=== PATIENT | male | born 1930 | race Caucasian/White ===

== ENCOUNTER 2016-12-27 16:17 | Observation (INO) | payer MEDICARE ==
[2016-12-27] VITALS (8 sets, daily range): BP systolic 122–206; BP diastolic 56–91; PULSE 57–82; RESP 18–20; TEMP 97.7–98; O2SAT 97–99
[~2016-12-27] VITALS: Ht 160 cm; Wt 82.0 kg
[~2016-12-27 16:17] MED LIST: ALBU6.7H INH; AMLO5TAB96; ASPI325T24; ATOR10; CLOP75; DYAZ37.52; METO25; PACE200T4; PERI1TAB; PRED20 PO; SPACER
[2016-12-27] MEDS ORDERED: METO25TA3 PO (16:41)
[2016-12-27] MEDS ORDERED: DIGO0.12 PO (16:41)
[2016-12-27] MEDS ORDERED: B12-1CHW CHEW (16:41)
[2016-12-27] MEDS ORDERED: WARF-23 PO (16:41)
--- NOTE | 2016-12-27 16:53 | PD ---
HPI Chief Complaint: Cardiac Complaint Time Seen by Provider: 16:38 Travel History International Travel<30 days: No Contact w/Intl Traveler<30days: No Traveled to known affect area: No History of Present Illness HPI 86-year-old male with history of atrial fibrillation, coronary disease, hypertension who presents for evaluation of chest pain, dizziness, fatigue. Per the patient he has been feeling somewhat generally weak for about 5 days. His has been checking his blood pressure and a daily basis and it has been running in the 140s to 170s systolic at home. This is atypical for him as he usually has a "low" blood pressure at home. Over the past 2-3 days she has been feeling intermittent dizziness, lightheadedness, which is worse when he is walking. He also notes that 2 days ago he developed some left sided chest pain which she described as a aching sensation. Symptoms lasted for about 45 minutes. He thought that it may be indigestion causing his pain and he took some Mylanta and the symptoms resolved. He has had no further chest pain since then but he has continued to have high blood pressure and dizziness which prompted evaluation. He denies headache, blurred vision, nausea or vomiting, shortness of breath, cough, fevers or chills, rash, dysuria, diarrhea. He sees tobacco sizer Dr. James in [place]. He has no primary care physician. He has no other complaints. PFS Past Medical History Hx Anticoagulant Therapy: Yes (WARFARIN) Atrial Fibrillation: Yes Cancer: Yes (DUODENAL-IN REMISSION) Cardiovascular Problems: Yes (CABG, A. FIB) Hypertension: Yes Past Surgical History Abdominal Surgery: Yes (duodenal surgery ) Appendectomy: Yes (REMOVED DUE TO POSS CA) Coronary Artery Bypass Graft: Yes (4X 2003) Social History Alcohol Use: Yes (occassionally ) Tobacco Use: Yes (cigar 2-3 A DAY) Substance Use: No Allergies-Medications (Allergen,Severity, Reaction): Coded Allergies: No Known Allergies (Verified , 12/27/16) Reported Meds & Prescriptions Reported Meds & Active Scripts Active Reported S94-Cocydc (Methylcobalamin) 1 Mg Chew 1 Mg CHEW DAILY Digoxin 0.125 Mg Tab 0.125 Mg PO DAILY Warfarin 5 Mg Tab 5 Mg PO DAILY Metoprolol Tartrate 25 Mg Tab 25 Mg PO BID Review of Systems Except as stated in HPI: all other systems reviewed are Neg Physical Exam Narrative GENERAL: Well-developed well-nourished male in no acute distress SKIN: Warm and dry. HEAD: Atraumatic. Normocephalic. EYES: Pupils equal and round. No scleral icterus. No injection or drainage. ENT: No nasal bleeding or discharge. Mucous membranes pink and moist. NECK: Trachea midline. No JVD. CARDIOVASCULAR: Regular rate and rhythm. No murmur appreciated. RESPIRATORY: No accessory muscle use. Clear to auscultation. Breath sounds equal bilaterally. GASTROINTESTINAL: Abdomen soft, non-tender, nondistended. Hepatic and splenic margins not palpable. MUSCULOSKELETAL: No obvious deformities. No edema. Ambulatory in the ED. NEUROLOGICAL: Awake and alert. No obvious cranial nerve deficits. Motor grossly within normal limits. Normal speech. PSYCHIATRIC: Appropriate mood and affect; insight and judgment normal. Data Data Last Documented VS Vital Signs Date Time Temp Pulse Resp B/P Pulse Ox O2 Delivery O2 Flow Rate FiO2 12/27/16 17:41 99 Room Air 12/27/16 16:42 18 12/27/16 16:20 97.7 74 206/91 Orders Electrocardiogram (12/27/16 16:49) Basic Metabolic Panel (Bmp) (12/27/16 16:49) Ckmb (Isoenzyme) Profile (12/27/16 16:49) Complete Blood Count With Diff (12/27/16 16:49) Magnesium (Mg) (12/27/16 16:49) Prothrombin Time / Inr (Pt) (12/27/16 16:49) Troponin I (12/27/16 16:49) Chest, Single Ap (12/27/16 16:49) Ecg Monitoring (12/27/16 16:49) Bilateral Bp Monitoring (12/27/16 16:49) Iv Access Insert/Monitor (12/27/16 16:49) Oximetry (12/27/16 16:49) Oxygen Administration (12/27/16 16:49) Sodium Chloride 0.9% Flush (Ns Flush) (12/27/16 17:00) Urinalysis - C+S If Indicated (12/27/16 16:49) Ct Brain W/O Iv Contrast(Rout) (12/27/16 ) Digoxin (12/27/16 16:49) Amlodipine (Norvasc) (12/27/16 18:30) Labs Laboratory Tests Test 12/27/16 12/27/16 17:05 17:21 White Blood Count 3.8 TH/MM3 Red Blood Count 3.46 MIL/MM3 Hemoglobin 11.1 GM/DL Hematocrit 32.3 % Mean Corpuscular Volume 93.4 FL Mean Corpuscular Hemoglobin 32.0 PG Mean Corpuscular Hemoglobin 34.3 % Concent Red Cell Distribution Width 14.3 % Platelet Count 141 TH/MM3 Mean Platelet Volume 8.4 FL Neutrophils (%) (Auto) 68.0 % Lymphocytes (%) (Auto) 21.5 % Monocytes (%) (Auto) 6.1 % Eosinophils (%) (Auto) 3.9 % Basophils (%) (Auto) 0.5 % Neutrophils # (Auto) 2.6 TH/MM3 Lymphocytes # (Auto) 0.8 TH/MM3 Monocytes # (Auto) 0.2 TH/MM3 Eosinophils # (Auto) 0.1 TH/MM3 Basophils # (Auto) 0.0 TH/MM3 CBC Comment DIFF FINAL Differential Comment Prothrombin Time 17.1 SEC Prothromb Time International 1.5 RATIO Ratio Sodium Level 136 MEQ/L Potassium Level 4.1 MEQ/L Chloride Level 104 MEQ/L Carbon Dioxide Level 24.8 MEQ/L Anion Gap 7 MEQ/L Blood Urea Nitrogen 19 MG/DL Creatinine 1.10 MG/DL Estimat Glomerular Filtration 63 ML/MIN Rate Random Glucose 153 MG/DL Calcium Level 8.1 MG/DL Magnesium Level 2.2 MG/DL Total Creatine Kinase 74 U/L Troponin I LESS THAN 0.02 NG/ML Digoxin Level 0.4 NG/ML Urine Color YELLOW Urine Turbidity CLEAR Urine pH 6.0 Urine Specific [place] 1.014 Urine Protein NEG mg/dL Urine Glucose (UA) NEG mg/dL Urine Ketones NEG mg/dL Urine Occult Blood NEG Urine Nitrite NEG Urine Bilirubin NEG Urine Urobilinogen LESS THAN 2.0 MG/DL Urine Leukocyte Esterase NEG Urine RBC 1 /hpf Urine WBC LESS THAN 1 /hpf Microscopic Urinalysis Comment CULT NOT INDICATED MDM Medical Decision Making Medical Screen Exam Complete: Yes Emergency Medical Condition: Yes Medical Record Reviewed: Yes Interpretation(s) EKG atrial fibrillation, isolated T-wave inversion in lead V1 CT brain CONCLUSION: 1. No acute findings. Chronic white matter ischemic changes. Chest x-ray CBC cbc3.8, hemoglobin 11.1, platelet 141 BMP BMP BUN 19, calcium 8.1, glucose 153 Troponin negative CK negative digoxin 0.4 Urinalysis negative Differential Diagnosis Angina, acute coronary syndrome, arrhythmia, electrolyte abnormality, intracranial or subdural hemorrhage, digoxin toxicity, medic anemia, dehydration Narrative Course The patient was placed on monitoring specialist and oximetry. Basic lab work, 12- lead EKG were ordered. CT brain, chest x-ray ordered. The patient was given a dose of norvasc for his hypertension. The patient's laboratory and imaging studies been reviewed and found the reassuring. His digoxin level is low at 0.4. His INR is subtherapeutic at 1.5. Given his symptoms of intermittent dizziness over the past few days is significant past medical history and age as a risk factor, plan is to admit the patient for observation of which the patient is agreeable. Discussed with resident Dr. Pascual who is agreeable with admission to Dr. Laura. Diagnosis Primary Impression: Dizziness Additional Impression: Chest pain Qualified Code: R07.9 - Chest pain, unspecified type Admitting Information Admitting Physician Requests: Observation Dontrell Peña Dec 27, 2016 16:53
[2016-12-27] MEDS ORDERED: SODIUM CHLORIDE 0.9% FLUSH 5 ML FLUSH IVF PRN (17:00)
[2016-12-27 17:33] LABS: AUTOMATED NEUTROPHIL # 2.6 TH/MM3 (1.8-7.7); BASOPHIL % 0.5 % (0.0-2.0); EOSINOPHIL # 0.1 TH/MM3 (0-0.4); EOSINOPHIL % 3.9 % (0.0-4.0); HEMATOCRIT 32.3 % (39.0-51.0); HEMO FLAGS DIFF FINAL; LYMPH % 21.5 % (9.0-44.0); LYMPHOCYTE # 0.8 TH/MM3 (1.0-4.8); MEAN CELL VOLUME 93.4 FL (80.0-100.0); MEAN CORPUSCULAR HGB CONC 34.3 % (32.0-36.0); MONO % 6.1 % (0.0-8.0); PLATELET COUNT 141 TH/MM3 (150-450); RED BLOOD COUNT 3.46 MIL/MM3 (4.50-5.90); RED CELL DISTRIBUTION WIDTH 14.3 % (11.6-17.2); WHITE BLOOD COUNT 3.8 TH/MM3 (4.0-11.0)
[2016-12-27 17:40] LABS: INTERNATIONAL NORMALIZED RATIO 1.5 RATIO; PROTHROMBIN TIME - PATIENT 17.1 SEC (9.8-11.6)
--- NOTE | 2016-12-27 17:42 | RADRPT ---
EXAM DATE/TIME: 12/27/2016 17:11 [facility] COMPARISON: No previous studies available for comparison. INDICATIONS : Dizziness and fatigue for five days. RADIATION DOSE: 56.35 CTDIvol (mGy) MEDICAL HISTORY : Hypertension. Carcinoma, not otherwise specified. SURGICAL HISTORY : CABG ENCOUNTER: Initial ACUITY: 1 day PAIN SCALE: 0/10 LOCATION: cranial TECHNIQUE: Multiple contiguous axial images were obtained of the head. Using automated exposure control and adj ustment of the mA and/or kV according to patient size, radiation dose was kept as low as reasonably a chievable to obtain optimal diagnostic quality images. FINDINGS: CEREBRUM: The ventricles are normal for age. No evidence of midline shift, mass lesion, hemorrhage or acute in farction. No extra-axial fluid collections are seen. POSTERIOR FOSSA: The cerebellum and brainstem are intact. The 4th ventricle is midline. The cerebellopontine angle i s unremarkable. EXTRACRANIAL: The visualized portion of the orbits is intact. SKULL: The calvaria is intact. No evidence of skull fracture. CONCLUSION: 1. No acute findings. Chronic white matter ischemic changes. Marcell Ortega MD on December 27, 2016 at 17:40 Board Certified Radiologist. This report was verified electronically.
[2016-12-27 17:48] LABS: BLOOD, URINE NEG (NEG); COMMENT (UR) CULT NOT INDICATED; CULTURE IF INDICATED CULT NOT INDICATED; GLUCOSE,URINE NEG (NEG); KETONE, URINE NEG (NEG); NITRITE,URINE NEG (NEG); URINE COLOR YELLOW (YELLW/STRAW)
[2016-12-27 17:56] LABS: ANION GAP 7 MEQ/L (5-15); BICARBONATE 24.8 MEQ/L (21.0-32.0); BLOOD UREA NITROGEN 19 MG/DL (7-18); CHLORIDE 104 MEQ/L (98-107); GLOMERULAR FILTRATION RATE 63 ML/MIN (>89); MAGNESIUM 2.2 MG/DL (1.5-2.5); POTASSIUM 4.1 MEQ/L (3.5-5.1); SODIUM (NA) 136 MEQ/L (136-145)
[2016-12-27 18:10] LABS: DIGOXIN 0.4 NG/ML (0.8-2.0)
[2016-12-27 18:14] LABS: CREATINE KINASE 74 U/L (39-308)
--- NOTE | 2016-12-27 19:03 | HHI.HP ---
HPI Service Family Medicine Primary Care Physician No Primary Care Physician Admission Diagnosis Dizziness, chest pain Diagnoses: Chief Complaint: high blood pressure International Travel<30 Days: No Contact w/Intl Traveler<30days: No Known Affected Area: No History of Present Illness 86 y/o male with history of atrial fibrillation presents for elevated pressure. States he has had elevated blood pressure, checked at home, since Thursday. in room with patient, who checks his blood pressure. Endorses some dizzy spells and indigestion. Also had several spells of chest pressure that resolve spontaneously. states he usually keeps busy, but felt more fatigued than normal. No chest pain currently, no shortness of breath. No palpitations. Has history of paroxysmal atrial fibrillation. He is on Coumadin. 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 He has no primary care doctor. He takes Digoxin and metoprolol. He was diagnosed in 2004 after bypass surgery, after going in for a stent, never had an ME. States his blood pressure is usually on the lower side. His last echo was in the last year or so. No history of strokes, hyperthyroidism. Occasional alcohol use. Review of Systems Constitutional: COMPLAINS OF: Fatigue, Dizziness, DENIES: Diaphoretic episodes , Fever, Chills Eyes: DENIES: Blurred vision, Eye pain Ears, nose, mouth, throat: DENIES: Nasal discharge, Sinus Pain Respiratory: DENIES: Cough, Shortness of breath Cardiovascular: COMPLAINS OF: Palpitations, DENIES: Chest pain, Lower Extremity Edema Gastrointestinal: DENIES: Abdominal pain, Black stools, Bloody stools, Constipation, Diarrhea, Nausea, Vomiting Genitourinary: DENIES: Dysuria Musculoskeletal: DENIES: Joint pain, Muscle aches Integumentary: DENIES: Abnormal pigmentation, Nail changes Hematologic/lymphatic: DENIES: Bruising, Lymphadenopathy Immunologic/allergic: DENIES: Eczema, Urticaria Neurologic: DENIES: Headache, Localized weakness Other as per HPI Past Family Social History Past Medical History Afib Duodenal cancer, in remission Past Surgical History Heart bypass Some arm, back surgeries Reported Medications Reported Meds & Active Scripts Active Reported [id number] (Methylcobalamin) 1 Mg Chew 1 Mg CHEW DAILY Digoxin 0.125 Mg Tab 0.125 Mg PO DAILY Warfarin 5 Mg Tab 5 Mg PO DAILY Metoprolol Tartrate 25 Mg Tab 25 Mg PO BID Allergies: Coded Allergies: No Known Allergies (Verified , 12/27/16) Active Ordered Medications Active Medications Amlodipine Besylate (Norvasc) 10 mg ONCE ONCE PO; Start 12/27/16 at 18:30; Stop 12/27/16 at 18:31; Status DC IV Flush (NS Flush) 2 ml UNSCH PRN IVF; Start 12/27/16 at 17:00 Family History Father-ME Mother-cancer Social History Occasional alcohol use History of cigar use Denies illicit drug use Physical Exam Vital Signs Vital Signs Date Time Temp Pulse Resp B/P Pulse Ox O2 Delivery O2 Flow Rate FiO2 12/27/16 17:41 99 Room Air 12/27/16 17:41 99 Room Air 12/27/16 16:42 18 12/27/16 16:20 97.7 74 20 206/91 97 Room Air Physical Exam GENERAL: Not diaphoretic. Negative [place] sign. No acute distress. EYES: PERRLA. EOMI. Lids and conjunctivae reveal no gross abnormality. No scleral icterus. ENT: Hearing adequate. Head NCAT. MMM. OP/OC clear. No cervical or supraclavicular LAD. NECK: No JVD. No carotid bruits. Neck supple, no masses. Trachea midline. No thyromegaly. RESPIRATORY: No evidence of pulmonary edema. Lungs essentially CTAB, no wheezing , crackles, or increased WOB. CARDIOVASCULAR: Irregularly irregular. no murmurs or rubs. Radial and DP pulses 2+ and symmetric bilaterally. Brisk capillary refill. ABDOMEN: S/ NT/ND. Bowel sounds x 4. No masses or pulsations present. No hepatosplenomegaly. EXTREMITIES: No remarkable dependent edema or varicosities. No clubbing, cyanosis, or erythema. MUSCULOSKELETAL: MAEW without significant joint pain or deformity. Strength 5/5 in upper and lower extremities. No calf tenderness. SKIN: Essentially clear with no significant rash or lesions. Adequate skin turgor. NEUROLOGICAL: NFND. Cranial nerves 2-12 grossly intact. Reflexes +2, symmetric bilaterally in upper and lower extremities. PSYCHIATRIC: Mental status normal for age. Laboratory Laboratory Tests Test 12/27/16 12/27/16 17:05 17:21 White Blood Count 3.8 Red Blood Count 3.46 Hemoglobin 11.1 Hematocrit 32.3 Mean Corpuscular Volume 93.4 Mean Corpuscular Hemoglobin 32.0 Mean Corpuscular Hemoglobin 34.3 Concent Red Cell Distribution Width 14.3 Platelet Count 141 Mean Platelet Volume 8.4 Neutrophils (%) (Auto) 68.0 Lymphocytes (%) (Auto) 21.5 Monocytes (%) (Auto) 6.1 Eosinophils (%) (Auto) 3.9 Basophils (%) (Auto) 0.5 Neutrophils # (Auto) 2.6 Lymphocytes # (Auto) 0.8 Monocytes # (Auto) 0.2 Eosinophils # (Auto) 0.1 Basophils # (Auto) 0.0 CBC Comment DIFF FINAL Differential Comment Prothrombin Time 17.1 Prothromb Time International 1.5 Ratio Sodium Level 136 Potassium Level 4.1 Chloride Level 104 Carbon Dioxide Level 24.8 Anion Gap 7 Blood Urea Nitrogen 19 Creatinine 1.10 Estimat Glomerular Filtration 63 Rate Random Glucose 153 Calcium Level 8.1 Magnesium Level 2.2 Total Creatine Kinase 74 Troponin I LESS THAN 0.02 Digoxin Level 0.4 Urine Color YELLOW Urine Turbidity CLEAR Urine pH 6.0 Urine Specific [place] 1.014 Urine Protein NEG Urine Glucose (UA) NEG Urine Ketones NEG Urine Occult Blood NEG Urine Nitrite NEG Urine Bilirubin NEG Urine Urobilinogen LESS THAN 2.0 Urine Leukocyte Esterase NEG Urine RBC 1 Urine WBC LESS THAN 1 Microscopic Urinalysis Comment CULT NOT INDICATED Result Diagram: 12/27/16 1705 12/27/16 1705 Imaging Last Impressions Head CT 12/27/16 0000 Signed Impressions: Service Date/Time: Tuesday, December 27, 2016 17:11 - CONCLUSION: 1. No acute findings. Chronic white matter ischemic changes. Marcell Ortega MD Assessment and Plan Assessment and Plan 86-year-old male with history of atrial fibrillation presents with elevated blood pressure and chest pain. Will admit observation for blood pressure control and ACS ruleout Code Status Full Discussed Condition With Dr. Ozuna Problem List: (1) Chest pain Status: Acute Plan: DDx includes ACS, GERD, PE, pneumonia, panic attack, myocarditis, costochondritis. Family history of heart disease. S/p CABG EKG showed atrial fibrillation, isolated T-wave inversion in V1 CXR showed cardiomegaly, postoperative CABG. No acute disease -Initial Trop less than 0.02. Trend Ervin and EKGs x 2. -Continue Metoprolol 25 PO BID marco -Continue digoxin -Zofran PRN nausea -Tele. -AM BMP (2) Hypertensive urgency Status: Acute Plan: BP 206/91 on admission. Trending down after given amlodipine in ED -Continue home metoprolol 25mg BID -Clonidine 0.1mg q6H for SBP>170, DBP>100 -Monitor vitals (3) Atrial fibrillation Status: Acute Plan: History of paroxysmal A. fib EKG showed A. fib and in ED INR 1.5, Digoxin level 0.4 AHT2YH0-Symd score: 4 -Continue digoxin, may need to increase due to low serum level -Continue metoprolol 25mg BID -Continue warfarin 5mg daily -Start therapeutic lovenox, due to patient not in therapeutic INR range -Daily PT/INR (4) FEN Status: Acute Plan: Fluids: tolerating PO Electrolytes: wnl, continue to monitor Nutrition: heart healthy diet DVT ppx: therapeutic lovenox & warfarin Problem Qualifiers (1) Chest pain: Qualified Code: R07.9 - Chest pain, unspecified type (2) Atrial fibrillation: Qualified Code: I48.0 - Paroxysmal atrial fibrillation Yoel Olivo MD R1 Dec 27, 2016 19:03
[2016-12-27] MEDS ORDERED: NALOXONE HCL 0.4 MG/ML AMP IV PRN (19:15)
[2016-12-27] MEDS ORDERED: SODIUM CHLORIDE 0.9% FLUSH 5 ML FLUSH FLUSH PRN (19:15)
[2016-12-27] MEDS ORDERED: ONDANSETRON HCL 4 MG/2 ML VIAL IVP PRN (19:15)
[2016-12-27] MEDS ORDERED: cloNIDine HCL 0.1 MG TAB PO PRN (19:15)
[2016-12-27] MEDS ORDERED: ACETAMINOPHEN 325 MG TAB PO PRN (19:15)
--- NOTE | 2016-12-27 19:29 | RADRPT ---
EXAM DATE/TIME: 12/27/2016 17:47 [facility] COMPARISON: No previous studies available for comparison. INDICATIONS : Chest Pain MEDICAL HISTORY : Hypertension. Carcinoma, colon. SURGICAL HISTORY : CABG. ENCOUNTER: Initial ACUITY: 1 day PAIN SCORE: 0/10 LOCATION: Bilateral chest FINDINGS: Cardiomegaly is present. Postoperative CABG. No focal consolidation or significant effusion. No pneum othorax. CONCLUSION: 1. Cardiomegaly, postoperative CABG. No focal consolidation or effusion. Marcell Ortega MD on December 27, 2016 at 19:26 Board Certified Radiologist. This report was verified electronically.
[2016-12-27] MEDS ORDERED: CYANOCOBALAMIN 1,000 MCG TAB PO SCH (19:30)
[2016-12-27] MEDS ORDERED: DO NOT ADM ANY ANTICOAGULANT DRUGS XX PRN (19:45)
[2016-12-27] MEDS ORDERED: WARFARIN SOD 6 MG TAB PO SCH (20:00)
[2016-12-27] MEDS ORDERED: hydrOXYzine HCL 25 MG TAB PO PRN (20:00)
[2016-12-27] MEDS: DIGOXIN 0.125 MG TAB PO SCH (20:52)
[2016-12-27] MEDS ORDERED: METOPROLOL TARTRATE 25 MG TAB PO SCH (21:00)
[2016-12-27] MEDS: ENOXAPARIN SODIUM 100 MG/ML SYRINGE SQ SCH (21:30)
[2016-12-27] MEDS: SODIUM CHLORIDE 0.9% FLUSH 5 ML FLUSH FLUSH SCH (22:57)
[2016-12-28] VITALS: PULSE 59
[2016-12-28 04:59] VITALS: BP 101/52; PULSE 67; RESP 19; TEMP 98.2; O2SAT 97
[2016-12-28 06:05] LABS: INTERNATIONAL NORMALIZED RATIO 1.7 RATIO; PROTHROMBIN TIME - PATIENT 19.4 SEC (9.8-11.6)
[2016-12-28 06:10] LABS: AUTOMATED NEUTROPHIL # 2.1 TH/MM3 (1.8-7.7); BASOPHIL % 0.6 % (0.0-2.0); EOSINOPHIL # 0.2 TH/MM3 (0-0.4); EOSINOPHIL % 5.9 % (0.0-4.0); HEMATOCRIT 32.4 % (39.0-51.0); HEMO FLAGS DIFF FINAL; LYMPH % 29.6 % (9.0-44.0); LYMPHOCYTE # 1.1 TH/MM3 (1.0-4.8); MEAN CELL VOLUME 95.1 FL (80.0-100.0); MEAN CORPUSCULAR HEMOGLOBIN 32.4 PG (27.0-34.0); MEAN CORPUSCULAR HGB CONC 34.1 % (32.0-36.0); MONO % 7.5 % (0.0-8.0); NEUT % 56.4 % (16.0-70.0); PLATELET COUNT 123 TH/MM3 (150-450); RED CELL DISTRIBUTION WIDTH 14.6 % (11.6-17.2); WHITE BLOOD COUNT 3.7 TH/MM3 (4.0-11.0)
[2016-12-28 06:33] LABS: ANION GAP 9 MEQ/L (5-15); BICARBONATE 21.9 MEQ/L (21.0-32.0); BLOOD UREA NITROGEN 21 MG/DL (7-18); CHLORIDE 104 MEQ/L (98-107); GLOMERULAR FILTRATION RATE 67 ML/MIN (>89); POTASSIUM 4.1 MEQ/L (3.5-5.1); SODIUM (NA) 135 MEQ/L (136-145)
[2016-12-28 06:43] LABS: CREATINE KINASE 71 U/L (39-308)
[2016-12-28 08:00] VITALS: PULSE 77
--- NOTE | 2016-12-28 08:56 | HHI.DCPOC ---
Discharge Care Plan Diagnosis: (1) Atrial fibrillation (2) Hypertensive urgency Goals to Promote Your Health * To prevent worsening of your condition and complications * To maintain your health at the optimal level Directions to Meet Your Goals Take your medications as prescribed Follow your dietary instruction Follow activity as directed Keep your appointments as scheduled Take your immunizations and boosters as scheduled If your symptoms worsen call your PCP, if no PCP go to Urgent Care Center or Emergency Room Smoking is Dangerous to Your Health. Avoid second hand smoke Call the 24-hour hour crisis hotline for domestic abuse at Christopher Macias MD R3 Dec 28, 2016 08:56
[2016-12-28] MEDS: SODIUM CHLORIDE 0.9% FLUSH 5 ML FLUSH FLUSH SCH (09:00)
[2016-12-28] MEDS: ENOXAPARIN SODIUM 100 MG/ML SYRINGE SQ SCH (09:00)
[2016-12-28] MEDS ORDERED: CYANOCOBALAMIN 1,000 MCG TAB PO SCH (09:00)
[2016-12-28 09:31] VITALS: O2SAT 95
[2016-12-28] MEDS: DIGOXIN 0.125 MG TAB PO SCH (09:50)
--- NOTE | 2016-12-28 10:42 | HHI.FPPN ---
Subjective Remarks Patient seen, examined and discussed with the medicine team. This is an 86-year-old male who resented to the emergency department on December 27 from home as his blood pressure had been elevated at home for a few days and his was concerned. He was experiencing some dizziness, some chest pressure and fatigue over the last several days and reported that he just didn't seem like himself. He has known atrial fibrillation and has been on Coumadin 5 mg daily, digoxin 0.125 mg daily and metoprolol 25 mg twice a day. He states that he did not miss any of his medications. Denies chest pain. His blood pressure initially when he presented was 206/91. History of CABG in 2004, had an echocardiogram within the last 1 year. He has a attending psychiatrist but has been unable to contact that physician despite having INR drawn, he has not been given the results. Remote history of duodenal carcinoma in remission. See history and physical examination for this admission; history and review of systems was repeated this morning and there is no change. If not indicated, no symptoms noted. This morning, he feels better and his dizziness and chest pressure have resolved. He feels ready to go home. Objective Vitals Vital Signs Date Time Temp Pulse Resp B/P Pulse Ox O2 Delivery O2 Flow Rate FiO2 12/28/16 09:31 95 21 12/28/16 04:59 98.2 67 19 101/52 97 12/28/16 00:00 59 12/27/16 23:41 98.0 57 19 122/56 98 12/27/16 22:35 97 12/27/16 21:55 98.0 69 19 139/57 98 12/27/16 21:00 77 18 162/76 98 Room Air 12/27/16 20:04 82 18 179/90 98 Room Air 12/27/16 19:09 68 18 183/81 98 Room Air 12/27/16 17:41 99 Room Air 12/27/16 17:41 99 Room Air 12/27/16 16:42 18 12/27/16 16:20 97.7 74 20 206/91 97 Room Air I/O 12/27/16 12/27/16 12/27/16 12/28/16 12/28/16 12/28/16 07:00 15:00 23:00 07:00 15:00 23:00 Intake Total 120 ml 120 ml Balance 120 ml 120 ml Intake Oral 120 ml 120 ml Result Diagram: 12/28/16 0355 12/28/16 0355 Other Results Laboratory Tests Test 12/27/16 12/27/16 12/28/16 12/28/16 17:05 17:21 00:11 03:55 White Blood Count 3.8 TH/MM3 3.7 TH/MM3 Red Blood Count 3.46 MIL/MM3 3.40 MIL/MM3 Hemoglobin 11.1 GM/DL 11.0 GM/DL Hematocrit 32.3 % 32.4 % Mean Corpuscular Volume 93.4 FL 95.1 FL Mean Corpuscular Hemoglobin 32.0 PG 32.4 PG Mean Corpuscular Hemoglobin 34.3 % 34.1 % Concent Red Cell Distribution Width 14.3 % 14.6 % Platelet Count 141 TH/MM3 123 TH/MM3 Mean Platelet Volume 8.4 FL 9.1 FL Neutrophils (%) (Auto) 68.0 % 56.4 % Lymphocytes (%) (Auto) 21.5 % 29.6 % Monocytes (%) (Auto) 6.1 % 7.5 % Eosinophils (%) (Auto) 3.9 % 5.9 % Basophils (%) (Auto) 0.5 % 0.6 % Neutrophils # (Auto) 2.6 TH/MM3 2.1 TH/MM3 Lymphocytes # (Auto) 0.8 TH/MM3 1.1 TH/MM3 Monocytes # (Auto) 0.2 TH/MM3 0.3 TH/MM3 Eosinophils # (Auto) 0.1 TH/MM3 0.2 TH/MM3 Basophils # (Auto) 0.0 TH/MM3 0.0 TH/MM3 CBC Comment DIFF FINAL DIFF FINAL Differential Comment Prothrombin Time 17.1 SEC 19.4 SEC Prothromb Time International 1.5 RATIO 1.7 RATIO Ratio Sodium Level 136 MEQ/L 135 MEQ/L Potassium Level 4.1 MEQ/L 4.1 MEQ/L Chloride Level 104 MEQ/L 104 MEQ/L Carbon Dioxide Level 24.8 MEQ/L 21.9 MEQ/L Anion Gap 7 MEQ/L 9 MEQ/L Blood Urea Nitrogen 19 MG/DL 21 MG/DL Creatinine 1.10 MG/DL 1.05 MG/DL Estimat Glomerular Filtration 63 ML/MIN 67 ML/MIN Rate Random Glucose 153 MG/DL 83 MG/DL Calcium Level 8.1 MG/DL 8.4 MG/DL Magnesium Level 2.2 MG/DL Total Creatine Kinase 74 U/L 59 U/L 71 U/L Troponin I LESS THAN 0.02 0.02 NG/ML LESS THAN 0.02 NG/ML NG/ML Free Thyroxine 1.00 NG/DL Thyroid Stimulating Hormone 0.681 uIU/ML 3rd Gen Digoxin Level 0.4 NG/ML Urine Color YELLOW Urine Turbidity CLEAR Urine pH 6.0 Urine Specific [place] 1.014 Urine Protein NEG mg/dL Urine Glucose (UA) NEG mg/dL Urine Ketones NEG mg/dL Urine Occult Blood NEG Urine Nitrite NEG Urine Bilirubin NEG Urine Urobilinogen LESS THAN 2.0 MG/DL Urine Leukocyte Esterase NEG Urine RBC 1 /hpf Urine WBC LESS THAN 1 /hpf Microscopic Urinalysis Comment CULT NOT INDICATED Imaging EKG showed atrial fibrillation with slow ventricular response. Chest X-Ray 12/27/16 1649 Signed Impressions: Service Date/Time: Tuesday, December 27, 2016 17:47 - CONCLUSION: 1. Cardiomegaly, postoperative CABG. No focal consolidation or effusion. Marcell Ortega MD Head CT 12/27/16 0000 Signed Impressions: Service Date/Time: Tuesday, December 27, 2016 17:11 - CONCLUSION: 1. No acute findings. Chronic white matter ischemic changes. Marcell Ortega MD Objective Remarks O. CONSTITUTIONAL/GEN: normally nourished, in NAD. Sitting up in the chair at the bedside. EYES: conjunctiva normal, PERRLA, EOMI. NECK: thyroid midline, carotids symmetrical. LUNGS: clear A-P, respiratory effort is normal. CARDIOVASCULAR: Irregular, irregular with grade 2/6 murmur best along the left sternal border. No significant edema. GI/ABD: soft without masses, without organomegaly. Active bowel sounds. NEURO: No focal deficits. SKIN: color normal, no rashes noted. HEME/LYMPH: no bruising, petechia or significant adenopathy MUSC: Extremities are normal in appearance. PSYCH/MENTAL STATUS: Alert and oriented x 3. A/P Assessment and Plan 86-year-old male with history of atrial fibrillation presents with elevated blood pressure and chest pain. Admitted for observation for blood pressure control and ACS ruleout. Atrial fibrillation was rate controlled, but pressure normalized, and his troponins never bumped higher than 0.02. EKGs were stable. His INR was 1.5+ he was given subcutaneous Lovenox. His chads score was 4. Attending Attestation Discharge home today, resume home meds, check INR in 2-3 days. He will follow- up with Dr. Olivo in the [facility]. Patient seen and examined. Case reviewed and discussed with the resident team. Agree with plan of care as discussed with me and documented in the note. Problem List: (1) Chest pain Status: Resolved Plan: Chest pressure resolved, ACS ruled out, atrial fib stable -Initial Trop less than 0.02. Trended troponins and EKGs, stable. -Continue Metoprolol 25 PO BID marco -Continue digoxin (2) Hypertensive urgency Plan: BP 206/91 on admission. -Continue home metoprolol 25mg BID Blood pressure normalized (3) Atrial fibrillation Status: Chronic Plan: History of paroxysmal A. fib EKG showed A. fib with slow ventricular response INR 1.5, Digoxin level 0.4 [id number] score: 4 -Continue digoxin 0.125 mg daily -Continue metoprolol 25mg BID -Continue warfarin 5mg daily -Therapeutic Lovenox 1 dose was given, due to patient not in therapeutic INR range -INR 2-3 days after discharge (4) FEN Status: Resolved Plan: Fluids: tolerating PO Electrolytes: wnl Nutrition: heart healthy diet Problem Qualifiers (1) Chest pain: Qualified Code: R07.9 - Chest pain, unspecified type (2) Atrial fibrillation: Qualified Code: I48.0 - Paroxysmal atrial fibrillation Jaci Laura MD Dec 28, 2016 10:42
--- NOTE | 2016-12-28 12:26 | EKG ---
Date Performed: 12/27/2016 Time Performed: 16:47:50 PTAGE: 86 years EKG: ATRIAL FIBRILLATION Compared to previous tracing, ventricular to atrial fibrillation has sl owed ABNORMAL RHYTHM ECG PREVIOUS TRACING : 10/26/2006 08.15 DOCTOR: José Olson Interpretating Date/Time 12/28/2016 12:26:27
--- NOTE | 2016-12-28 12:28 | EKG ---
Date Performed: 12/27/2016 Time Performed: 23:39:01 PTAGE: 86 years EKG: ATRIAL FIBRILLATION WITH SLOW VENTRICULAR RESPONSE POSSIBLE ANTERIOR MYOCARDIAL INFARCTION Compared to previous tracing, ventricular response to atrial fibrillation has slowed further ABNORMAL ECG PREVIOUS TRACING : 12/27/2016 16.47 DOCTOR: José Olson Interpretating Date/Time 12/28/2016 12:26:55
--- NOTE | 2016-12-28 12:29 | EKG ---
Date Performed: 12/28/2016 Time Performed: 05:03:43 PTAGE: 86 years EKG: ATRIAL FIBRILLATION WITH SLOW VENTRICULAR RESPONSE ANTEROSEPTAL MYOCARDIAL INFARCTION Walter red to prior tracing no significant change ABNORMAL ECG PREVIOUS TRACING : 12/27/2016 16.47 DOCTOR: José Olson Interpretating Date/Time 12/28/2016 12:27:03
[2016-12-28] MEDS ORDERED: WARFARIN SOD 5 MG TAB PO SCH (16:00)
[2017-01-05] MEDS ORDERED: TAMS0.4C4 PO (12:31)
[2017-01-05] MEDS ORDERED: ATOR20TA15 PO (12:31)
[2017-01-10] MEDS ORDERED: POTA10TA2 PO (22:54)
[2017-01-10] MEDS ORDERED: FURO20TA PO (22:54)
[2017-02-02] MEDS ORDERED: AMLO2.5T PO ×2 (10:10→10:12)
[2017-02-02] MEDS ORDERED: LOVA20TA PO ×2 (10:10→10:12)
[2017-02-07] MEDS ORDERED: AMLO5TAB2 PO (08:37)
[2017-03-03] MEDS ORDERED: BENA25TA3 PO (08:59)
[2017-03-03] MEDS ORDERED: FLUT1SPR5 EACH NARE (08:59)
[2017-03-12] MEDS ORDERED: LISI-519 PO (12:00)
[2017-03-12] MEDS ORDERED: MIRTA15 PO (12:00)
[2017-03-24] MEDS ORDERED: LISI-519 PO (06:49)
== END 2016-12-28 10:59 | disposition home or self-care (01) ==
LOC: NEPC 16:17 → NEDA 18:28 → NEPFCDU 21:47
PROVIDERS: ADMIT Family Medicine; ATTEND Family Medicine
DX: I48.0 Paroxysmal atrial fibrillation (principal); I16.0 Hypertensive urgency; R07.9 Chest pain, unspecified; I11.9 Hypertensive heart disease without heart failure; I25.10 Atherosclerotic heart disease of native coronary artery without angina pectoris; Z72.0 Tobacco use; Z79.01 Long term (current) use of anticoagulants; Z95.1 Presence of aortocoronary bypass graft; Z85.068 Personal history of other malignant neoplasm of small intestine; Z82.49 Family history of ischemic heart disease and other diseases of the circulatory system
CPT/HCPCS: 70450; 71010; 80048; 80162; 81001; 82550; 83735; 84439; 84443; 84484; 85025; 85610; 93005; 99285; G0378; J1650

== ENCOUNTER 2017-03-05 18:48 | Emergency (ER) | payer MEDICARE ==
[~2017-03-05] VITALS: Ht 172.7 cm; Wt 75.0 kg
[~2017-03-05 18:48] MED LIST changes: -ALBU6.7H INH; +AMLO2.5T PO; +AMLO5TAB2 PO; -AMLO5TAB96; -ASPI325T24; -ATOR10; +B12-1CHW CHEW; +BENA25TA3 PO; -CLOP75; +DIGO0.12 PO; -DYAZ37.52; +FLUT1SPR5 EACH NARE; +FURO20TA PO; +LOVA20TA PO; -METO25; +METO25TA3 PO; -PACE200T4; -PERI1TAB; +POTA10TA2 PO; -PRED20 PO; -SPACER; +TAMS0.4C4 PO; +WARF-23 PO
[2017-03-05 18:51] VITALS: BP 142/67; PULSE 86; RESP 18; TEMP 98.2; O2SAT 98
--- NOTE | 2017-03-05 19:20 | PD ---
Physical Exam Time Seen by Provider: 19:18 Narrative 87yo c/o SOB and dizziness for the past couple days. A little bit of left sided chest pain. Denies fever or recent upper respiratory symptoms. Was told to come in by [facility]. Patient stable. Patient seen in triage. Awaiting bed placement. Data Data Last Documented VS Vital Signs Date Time Temp Pulse Resp B/P Pulse Ox O2 Delivery O2 Flow Rate FiO2 03/05/17 18:51 98.2 86 18 142/67 98 MDM Supervised Visit with BRYANT: Kaycee Zarco Mar 05, 2017 19:20
[2017-03-06] MEDS ORDERED: AMLO2.5T PO (15:05)
[2017-03-12] MEDS ORDERED: MIRTA15 PO (12:00)
[2017-03-12] MEDS ORDERED: LISI-519 PO (12:00)
[2017-03-24] MEDS ORDERED: LISI-519 PO (06:49)
== END 2017-03-05 21:38 | disposition left against medical advice (07) ==
LOC: NED 18:48
DX: R06.02 Shortness of breath (principal); Z53.21 Procedure and treatment not carried out due to patient leaving prior to being seen by health care provider; R42 Dizziness and giddiness; R07.9 Chest pain, unspecified
CPT/HCPCS: 99281

== ENCOUNTER 2017-03-06 09:40 | Observation (INO) | payer MEDICARE ==
[~2017-03-06] VITALS: Ht 170.2 cm; Wt 79.5 kg
[2017-03-06] VITALS (10 sets, daily range): BP systolic 121–168; BP diastolic 62–83; PULSE 61–83; RESP 16–20; TEMP 97.6–98.1; O2SAT 96–98
[2017-03-06] MEDS ORDERED: SODIUM CHLORIDE 0.9% FLUSH 10 ML FLUSH IVF PRN (10:15)
[2017-03-06 10:30] LABS: AUTOMATED NEUTROPHIL # 2.4 TH/MM3 (1.8-7.7); BASOPHIL % 0.7 % (0.0-2.0); EOSINOPHIL # 0.2 TH/MM3 (0-0.4); EOSINOPHIL % 4.2 % (0.0-4.0); HEMATOCRIT 31.5 % (39.0-51.0); HEMO FLAGS DIFF FINAL; LYMPH % 21.9 % (9.0-44.0); LYMPHOCYTE # 0.8 TH/MM3 (1.0-4.8); MEAN CORPUSCULAR HEMOGLOBIN 31.7 PG (27.0-34.0); MEAN CORPUSCULAR HGB CONC 33.8 % (32.0-36.0); NEUT % 65.2 % (16.0-70.0); PLATELET COUNT 167 TH/MM3 (150-450); RED BLOOD COUNT 3.36 MIL/MM3 (4.50-5.90); RED CELL DISTRIBUTION WIDTH 14.3 % (11.6-17.2); WHITE BLOOD COUNT 3.7 TH/MM3 (4.0-11.0)
[2017-03-06 10:39] LABS: APTT (PATIENT) 40.1 SEC (24.3-30.1); PROTHROMBIN TIME - PATIENT 22.3 SEC (9.8-11.6)
[2017-03-06 10:52] LABS: ALT (GPT) 28 U/L (12-78); ANION GAP 8 MEQ/L (5-15); AST (GOT) 37 U/L (15-37); BICARBONATE 23.2 MEQ/L (21.0-32.0); BLOOD UREA NITROGEN 14 MG/DL (7-18); CHLORIDE 104 MEQ/L (98-107); GLOMERULAR FILTRATION RATE 71 ML/MIN (>89); MAGNESIUM 2.3 MG/DL (1.5-2.5); POTASSIUM 4.2 MEQ/L (3.5-5.1); SODIUM (NA) 135 MEQ/L (136-145)
[2017-03-06 10:59] LABS: ALKALINE PHOSPHATASE 117 U/L (45-117); TOTAL BILIRUBIN ADULT 0.7 MG/DL (0.2-1.0)
[2017-03-06 11:00] LABS: CREATINE KINASE 98 U/L (39-308)
--- NOTE | 2017-03-06 11:31 | PD ---
HPI Chief Complaint: Respiratory Symptoms Time Seen by Provider: 10:14 Travel History International Travel<30 days: No Contact w/Intl Traveler<30days: No Traveled to known affect area: No History of Present Illness HPI 87-year-old male presents with shortness of breath and dizziness over the past couple of days. He states he went to dr mohamud who ordered an ultrasound of his right leg as he's been also having swelling to that leg more and had a study done through [facility]. He states he came here yesterday but after waiting 5 hours left before full evaluation. He states he did not have blood work or testing and was only in triage. He states that he called Dr. Vergara and they recommended for him to come back to the emergency room. He states that he feels short of breath when he moves. He denies other modifying factors. He states that he had his Coumadin checked a couple days ago and is blood level was about 2-1/2 range and so they continued his current dosage given he recently was 4.7. He states that he is on this for atrial fibrillation. He denies other concurrent complaints. PFSH Past Medical History Hx Anticoagulant Therapy: Yes Atrial Fibrillation: Yes Blood Disorders: No Heart Rhythm Problems: Yes (AFIB) Cancer: Yes (Colon cancer) Cardiovascular Problems: Yes High Cholesterol: Yes Chest Pain: Yes Congestive Heart Failure: No Endocrine: No Gastrointestinal Disorders: Yes Genitourinary: Yes (Hx of Divirticulitis) Hypertension: Yes Immune Disorder: No Implanted Vascular Access Dvce: Yes Musculoskeletal: Yes (Lower Back, Arthritis) Neurologic: No Psychiatric: No Reproductive: No Respiratory: No Past Surgical History Abdominal Surgery: Yes (duodenal surgery ) Appendectomy: Yes (REMOVED DUE TO POSS CA) Coronary Artery Bypass Graft: Yes (4X 2003) Other Surgery: Yes (CABG) Social History Alcohol Use: Yes (occassionally ) Tobacco Use: Yes (cigar 2-3 A DAY) Substance Use: No Allergies-Medications (Allergen,Severity, Reaction): Coded Allergies: No Known Allergies (Verified , 03/05/17) Reported Meds & Prescriptions Reported Meds & Active Scripts Active Flonase Nasal [place] (Fluticasone Nasal [place]) 50 Mcg/Act [place] 50 Mcg EACH NARE BID Lovastatin 20 Mg Tab 2 Tab PO DAILY Amlodipine (Amlodipine Besylate) 2.5 Mg Tab 2.5 Mg PO DAILY Tamsulosin (Tamsulosin HCl) 0.4 Mg Cap 0.4 Mg PO HS Reported Potassium Chloride ER (Potassium Chloride) 10 Meq Tab 10 Meq PO DAILY Furosemide 20 Mg Tab 20 Mg PO BID [id number] (Methylcobalamin) 1 Mg Chew 1 Mg CHEW DAILY Digoxin 0.125 Mg Tab 0.125 Mg PO DAILY Warfarin 5 Mg Tab 5 Mg PO DAILY Metoprolol Tartrate 25 Mg Tab 25 Mg PO BID Review of Systems Except as stated in HPI: all other systems reviewed are Neg Physical Exam Narrative GENERAL: Well-nourished, well-developed patient. SKIN: Warm and dry. HEAD: Normocephalic and atraumatic. EYES: No injection or drainage. ENT: No nasal drainage noted. NECK: Supple, trachea midline. CARDIOVASCULAR: Regular rate and rhythm RESPIRATORY: Clear to auscultation bilaterally at apices. No accessory muscle use. GASTROINTESTINAL: Abdomen soft, non-tender, nondistended. EXTREMITIES: Moderate nonpitting bilateral pedal edema noted NEUROLOGICAL: Awake and alert. Moves all extremities. Normal speech. Data Data Last Documented VS Vital Signs Date Time Temp Pulse Resp B/P Pulse Ox O2 Delivery O2 Flow Rate FiO2 03/06/17 13:25 72 18 121/66 97 03/06/17 09:43 98.1 Orders Electrocardiogram (03/06/17 ) B-Type Natriuretic Peptide (03/06/17 10:14) Ckmb (Isoenzyme) Profile (03/06/17 10:14) Complete Blood Count With Diff (03/06/17 10:14) Comprehensive Metabolic Panel (03/06/17 10:14) Magnesium (Mg) (03/06/17 10:14) Prothrombin Time / Inr (Pt) (03/06/17 10:14) Act Partial Throm Time (Ptt) (03/06/17 10:14) Troponin I (03/06/17 10:14) Chest, Single Ap (03/06/17 10:14) Ecg Monitoring (03/06/17 10:14) Bilateral Bp Monitoring (03/06/17 10:14) Iv Access Insert/Monitor (03/06/17 10:14) Oximetry (03/06/17 10:14) Sodium Chloride 0.9% Flush (Ns Flush) (03/06/17 10:15) Ct Pulmonary Angiogram (03/06/17 ) Iohexol 350 Inj (Omnipaque 350 Inj) (03/06/17 12:44) Furosemide Inj (Lasix Inj) (03/06/17 13:15) Admit Order (Ed Use Only) (03/06/17 13:26) Labs Laboratory Tests Test 03/06/17 09:55 White Blood Count 3.7 TH/MM3 Red Blood Count 3.36 MIL/MM3 Hemoglobin 10.6 GM/DL Hematocrit 31.5 % Mean Corpuscular Volume 94.0 FL Mean Corpuscular Hemoglobin 31.7 PG Mean Corpuscular Hemoglobin 33.8 % Concent Red Cell Distribution Width 14.3 % Platelet Count 167 TH/MM3 Mean Platelet Volume 8.0 FL Neutrophils (%) (Auto) 65.2 % Lymphocytes (%) (Auto) 21.9 % Monocytes (%) (Auto) 8.0 % Eosinophils (%) (Auto) 4.2 % Basophils (%) (Auto) 0.7 % Neutrophils # (Auto) 2.4 TH/MM3 Lymphocytes # (Auto) 0.8 TH/MM3 Monocytes # (Auto) 0.3 TH/MM3 Eosinophils # (Auto) 0.2 TH/MM3 Basophils # (Auto) 0.0 TH/MM3 CBC Comment DIFF FINAL Differential Comment Prothrombin Time 22.3 SEC Prothromb Time International 2.0 RATIO Ratio Activated Partial 40.1 SEC Thromboplast Time Sodium Level 135 MEQ/L Potassium Level 4.2 MEQ/L Chloride Level 104 MEQ/L Carbon Dioxide Level 23.2 MEQ/L Anion Gap 8 MEQ/L Blood Urea Nitrogen 14 MG/DL Creatinine 0.99 MG/DL Estimat Glomerular Filtration 71 ML/MIN Rate Random Glucose 118 MG/DL Calcium Level 8.7 MG/DL Magnesium Level 2.3 MG/DL Total Bilirubin 0.7 MG/DL Aspartate Amino Transf 37 U/L (AST/SGOT) Alanine Aminotransferase 28 U/L (ALT/SGPT) Alkaline Phosphatase 117 U/L Total Creatine Kinase 98 U/L Troponin I LESS THAN 0.02 NG/ML B-Type Natriuretic Peptide 180 PG/ML Total Protein 7.2 GM/DL Albumin 3.9 GM/DL MDM Medical Decision Making Medical Screen Exam Complete: Yes Emergency Medical Condition: Yes Medical Record Reviewed: Yes (h confirmed) Interpretation(s) EKG is atrial fibrillation at [address] segment elevation PR criteria or consecutive T-wave inversion CBC & BMP Diagram 03/06/17 09:55 inr is 2.0 Outpatient right lower extremity ultrasound shows no DVT from yesterday Last 24 hours Impressions Chest X-Ray 03/06/17 1014 Signed Impressions: Service Date/Time: Monday, March 06, 2017 10:23 - CONCLUSION: Question of mild pulmonary venous congestion. Radha Olvera MD CT Angiography 03/06/17 0000 Signed Impressions: Service Date/Time: Monday, March 06, 2017 12:39 - CONCLUSION: 1. Bilateral pleural effusions, moderate on the right and small on the left 2. Mild interstitial prominence suggesting some degree of vascular congestion or volume overload. 3. In addition, heart size is prominent with enlargement of the left atrium, mitral valve annulus calcification and calcification of the aortic valve leaflets. Spectrum of findings suggests some degree of CHF. 4. No pulmonary embolus. Kurt Noriega MD Differential Diagnosis Anemia, renal failure, pneumonia, CHF, atypical angina, PE Narrative Course Will check blood work, chest x-ray and reevaluate Given INR of 2.[address] chest while awaiting ultrasound from yesterday ct chest with pleural effusions and chf, no prior history of, patient updated and agree to observation Physician Communication Physician Communication resident team agree to admit Diagnosis Primary Impression: Pleural effusion Additional Impression: Shortness of breath Admitting Information Admitting Physician Requests: Observation Dora Ty MD Mar 06, 2017 11:31
--- NOTE | 2017-03-06 12:03 | RADRPT ---
EXAM DATE/TIME: 03/06/2017 10:23 [facility] COMPARISON: CHEST SINGLE AP, December 27, 2016, 17:47. INDICATIONS : Shortness of breath. MEDICAL HISTORY : None. SURGICAL HISTORY : CABG. ENCOUNTER: Initial ACUITY: 3 days PAIN SCORE: 0/10 LOCATION: Bilateral chest FINDINGS: Slight cardiomegaly seen. There is evidence for prior median sternotomy. There is question of mild pu lmonary venous congestion. Focal consolidation is not seen. CONCLUSION: Question of mild pulmonary venous congestion. Radha Olvera MD on March 06, 2017 at 12:00 Board Certified Radiologist. This report was verified electronically.
[2017-03-06] MEDS ORDERED: IOHEXOL 350 MG/ML 10 ML VIAL (for RAD DIAG) IV ONE (12:44)
--- NOTE | 2017-03-06 12:59 | RADRPT ---
EXAM DATE/TIME: 03/06/2017 12:39 [facility] COMPARISON: No previous studies available for comparison. INDICATIONS : Patient complains of SOB and dizzy for several days, evaluate for PE. IV CONTRAST: 75 cc Omnipaque 350 (iohexol) IV Injection Site: Rt AC Lot: [id number] Exp Date: Dec 2019 Lot: Exp Date : RADIATION DOSE: CTDIvol (mGy) MEDICAL HISTORY : Cardiovascular disease. Carcinoma, colon. SURGICAL HISTORY : Appendectomy. ENCOUNTER: Initial ACUITY: 1 day PAIN SCALE: 0/10 LOCATION: chest TECHNIQUE: Volumetric scanning of the chest was performed using a pulmonary embolism protocol MIP images were re constructed. Using automated exposure control and adjustment of the mA and/or kV according to patien t size, radiation dose was kept as low as reasonably achievable to obtain optimal diagnostic quality images. FINDINGS: PULMONARY ARTERIES: No filling defects are seen in the pulmonary arteries through the segmental level. LUNGS: There is no consolidation or pneumothorax . Interstitial prominence suggests some degree of vascular congestion or volume overload. No concerning pulmonary nodule is visualized. PLEURAE: Bilateral pleural effusions, moderate on the right and small on the left. MEDIASTINUM: There is good visualization of the great vessels of the middle mediastinum. No evidence of mediastin al or hilar adenopathy/mass. There is enlargement of the left atrium. Calcification is seen in the mi tral valve annulus and the leaflets of the aortic valve. Atherosclerotic calcification of the coronar y arteries with coronary artery bypass grafts extending off the ascending thoracic aorta MUSCULOSKELETAL: Within normal limits for patient age. Median sternotomy wires. MISCELLANEOUS: The visualized upper abdominal organs demonstrate no acute abnormality. CONCLUSION: 1. Bilateral pleural effusions, moderate on the right and small on the left 2. Mild interstitial prominence suggesting some degree of vascular congestion or volume overload. 3. In addition, heart size is prominent with enlargement of the left atrium, mitral valve annulus adonis cification and calcification of the aortic valve leaflets. Spectrum of findings suggests some degree of CHF. 4. No pulmonary embolus. Kurt Noriega MD on March 06, 2017 at 12:51 Board Certified Radiologist. This report was verified electronically.
[2017-03-06] MEDS ORDERED: FUROSEMIDE 40 MG/4 ML VIAL IV PUSH ONE (13:15)
[2017-03-06] MEDS ORDERED: SODIUM CHLORIDE 0.9% FLUSH 10 ML FLUSH IV FLUSH PRN (14:15)
[2017-03-06] MEDS ORDERED: PILL SPLITTER OTHER PRN (14:30)
[2017-03-06] MEDS ORDERED: DO NOT ADM ANY ANTICOAGULANT DRUGS OTHER PRN (14:45)
--- NOTE | 2017-03-06 15:04 | HHI.HP ---
[facility] Service Family Medicine Primary Care Physician Jesse Duncan MD Admission Diagnosis new onset chf, pleural effusions Diagnoses: International Travel<30 Days: No Contact w/Intl Traveler<30days: No Known Affected Area: No History of Present Illness 87-year-old male with past medical history of [place] on Coumadin, coronary artery disease status post CABG, hypertension presenting with a several month history of shortness of breath associated with orthopnea, lower extremity edema. He presents to the ED today due to worsening shortness of breath from baseline as well as associated anxiety symptoms due to not being able to catch his breath over the last several days. He also notes lightheadedness over the last several months as well. He has not had any chest pain. He also notes fatigue and decreased appetite, which has worsened over the last several days as well. (Kris Perez MD R1) Review of Systems Constitutional: COMPLAINS OF: Fatigue, Change in appetite, DENIES: Fever, Chills Eyes: DENIES: Diplopia Ears, nose, mouth, throat: COMPLAINS OF: Hearing loss, DENIES: Tinnitus, Vertigo Respiratory: COMPLAINS OF: Shortness of breath, DENIES: Cough, Wheezing Cardiovascular: COMPLAINS OF: Dyspnea on Exertion, Lower Extremity Edema, Orthopnea, DENIES: Chest pain, Palpitations Gastrointestinal: DENIES: Abdominal pain, Diarrhea, Nausea, Vomiting Genitourinary: DENIES: Dysuria Musculoskeletal: DENIES: Muscle aches Integumentary: DENIES: Rash Immunologic/allergic: DENIES: Eczema Neurologic: DENIES: Headache, Localized weakness, Speech Problems Psychiatric: COMPLAINS OF: Anxiety, Depression, DENIES: Suicidal Ideation ( Kris Perez MD R1) Past Family Social History Past Medical History PMH HTN Atrial fibrillation CAD Gastric/Duodenal cancer Past Surgical History Cardiac bypass 2004 Resection of gastric/duodenal cancer 2004 Reported Medications Reported Meds & Active Scripts Active Amlodipine (Amlodipine Besylate) 2.5 Mg Tab 7.5 Mg PO DAILY Flonase Nasal [place] (Fluticasone Nasal [place]) 50 Mcg/Act [place] 50 Mcg EACH NARE BID Lovastatin 20 Mg Tab 2 Tab PO DAILY Tamsulosin (Tamsulosin HCl) 0.4 Mg Cap 0.4 Mg PO HS Reported Potassium Chloride ER (Potassium Chloride) 10 Meq Tab 10 Meq PO DAILY Furosemide 20 Mg Tab 20 Mg PO BID [id number] (Methylcobalamin) 1 Mg Chew 1 Mg CHEW DAILY Digoxin 0.125 Mg Tab 0.125 Mg PO DAILY Warfarin 5 Mg Tab 5 Mg PO DAILY Metoprolol Tartrate 25 Mg Tab 25 Mg PO BID (Kris Perez MD R1) Allergies: Coded Allergies: No Known Allergies (Verified , 03/05/17) Active Ordered Medications Current Medications Medications (Trade) Dose Ordered Sig/Harshad Route Start Time Stop Time Status Last Admin (NS Flush) 2 ml UNSCH PRN IV FLUSH 03/06/17 14:15 (NS Flush) 2 ml BID IV FLUSH 03/06/17 21:00 (Lasix Inj) 40 mg BID@09,18 IVP 03/06/17 18:00 (KCl) 10 meq BID PO 03/06/17 21:00 (Lanoxin) 0.125 mg DAILY PO 03/07/17 09:00 (Pravachol) 40 mg DAILY PO 03/07/17 09:00 (Lopressor) 25 mg BID PO 03/06/17 21:00 (Flomax) 0.4 mg HS PO 03/06/17 21:00 (Coumadin) 5 mg DAILY@1600 PO 03/07/17 16:00 (Vitamin B12) 1,000 mcg DAILY PO 03/07/17 09:00 (Prinivil) 2.5 mg DAILY PO 03/07/17 09:00 (Pill Splitter) 1 ea UNSCH PRN OTHER 03/06/17 14:30 Miscellaneous Information ALL NURSING DEPARTME... 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 Rare alcohol consumption. 70 yr smoking history; currently smokes cigars. 10 hrs/week exercise (Kris Perez MD R1) Physical Exam Vital Signs Vital Signs Date Time Temp Pulse Resp B/P Pulse Ox O2 Delivery O2 Flow Rate FiO2 03/06/17 14:21 97 21 03/06/17 13:25 72 18 121/66 97 03/06/17 10:23 165/72 167/77 03/06/17 10:19 97 03/06/17 09:43 98.1 73 16 168/75 98 Physical Exam GENERAL: WDWN elderly white male sitting up in bed in NAD. SKIN: No rashes, ecchymoses or lesions. Cool and dry. HEAD: NC/AT EYES: PERRL. EOMI. No conjunctival injection or drainage. ENT: MMM, OP without erythema, tonsillar swelling, or exudate. Graying TMs bilaterally, no erythema or bulging. NECK: Supple, no lymphadenopathy. JVD with hepatojugular reflex. CARDIOVASCULAR: Normal rate, irregularly irregular rhythm. Normal S1/S2. II-III/ systolic murmur heard at RUSB and LUSB, loudest LUSB. RESPIRATORY: CTAB. No crackles or wheezes. GASTROINTESTINAL: Abdomen soft, non-distended, non-tender. No hepato- splenomegaly or palpable masses. MUSCULOSKELETAL: Extremities without clubbing, cyanosis, or edema. NEUROLOGICAL: Awake and alert. Cranial nerves II through XII grossly intact. Moves all extremities without difficulty. Normal speech. Laboratory Laboratory Tests Test 03/06/17 09:55 White Blood Count 3.7 Red Blood Count 3.36 Hemoglobin 10.6 Hematocrit 31.5 Mean Corpuscular Volume 94.0 Mean Corpuscular Hemoglobin 31.7 Mean Corpuscular Hemoglobin 33.8 Concent Red Cell Distribution Width 14.3 Platelet Count 167 Mean Platelet Volume 8.0 Neutrophils (%) (Auto) 65.2 Lymphocytes (%) (Auto) 21.9 Monocytes (%) (Auto) 8.0 Eosinophils (%) (Auto) 4.2 Basophils (%) (Auto) 0.7 Neutrophils # (Auto) 2.4 Lymphocytes # (Auto) 0.8 Monocytes # (Auto) 0.3 Eosinophils # (Auto) 0.2 Basophils # (Auto) 0.0 CBC Comment DIFF FINAL Differential Comment Prothrombin Time 22.3 Prothromb Time International 2.0 Ratio Activated Partial 40.1 Thromboplast Time Sodium Level 135 Potassium Level 4.2 Chloride Level 104 Carbon Dioxide Level 23.2 Anion Gap 8 Blood Urea Nitrogen 14 Creatinine 0.99 Estimat Glomerular Filtration 71 Rate Random Glucose 118 Calcium Level 8.7 Magnesium Level 2.3 Total Bilirubin 0.7 Aspartate Amino Transf 37 (AST/SGOT) Alanine Aminotransferase 28 (ALT/SGPT) Alkaline Phosphatase 117 Total Creatine Kinase 98 Troponin I LESS THAN 0.02 B-Type Natriuretic Peptide 180 Total Protein 7.2 Albumin 3.9 (Kris Perez MD R1) Result Diagram: 03/06/17 0955 03/06/17 0955 Imaging Last Impressions Chest X-Ray 03/06/17 1014 Signed Impressions: Service Date/Time: Monday, March 06, 2017 10:23 - CONCLUSION: Question of mild pulmonary venous congestion. Radha Olvera MD CT Angiography 03/06/17 0000 Signed Impressions: Service Date/Time: Monday, March 06, 2017 12:39 - CONCLUSION: 1. Bilateral pleural effusions, moderate on the right and small on the left 2. Mild interstitial prominence suggesting some degree of vascular congestion or volume overload. 3. In addition, heart size is prominent with enlargement of the left atrium, mitral valve annulus calcification and calcification of the aortic valve leaflets. Spectrum of findings suggests some degree of CHF. 4. No pulmonary embolus. Kurt Noriega MD Course S/p 40 mg IV Lasix in ER (Kris Perez MD R1) Assessment and Plan Assessment and Plan 87 yo man with history of coronary artery disease, atrial fibrillation on Coumadin, hypertension presenting with: Code Status Full Code (Kris Perez MD R1) Attending Attestation Patient seen and examined. Case reviewed and discussed with the resident team. Agree with plan of care as discussed with me and documented in the resident note. (Michelle Talamantes MD) Problem List: (1) CHF (congestive heart failure) Status: Acute Plan: Given h/o CAD, orthopnea, lower extremity edema, and response to Lasix, likely Dx is CHF. Echo done in office by [facility] Dr. Vergara showing normal EF with aortic stenosis; report to follow Troponin I < 0.02 EKG showing rate-controlled AFib, no ST-T changes - Continue home metoprolol - Lasix 40 mg IV BID - Potassium 10 mg PO BID - Lisinopril 5 mg daily starting tomorrow - Hold amlodipine (switching to lisinopril) - Consult cardiology, further medication adjustment per their recommendation - Cardiac rehab consult - Daily weights, I&O - Diet heart healthy with 1.5 L fluid restriction, 2 gm sodium restriction - Trend troponin, EKG - Telemetry (2) Atrial fibrillation Status: Chronic Plan: Currently rate-controlled - Continue home metoprolol, digoxin - Continue coumadin - Check INR in AM (3) Essential hypertension Status: Acute Plan: BP initially high on arrival to ER (170s), hadn't taken home medications. Decreased to 120s. - Continue metoprolol - Starting lisinopril in AM as above - Discontinue amlodipine (switching to lisinopril) - If other agent needed, consider Aldactone (if recommended by cardiology) (4) CAD (coronary artery disease) Status: Acute Plan: Stable - Continue home statin, aspirin (5) BPH (benign prostatic hyperplasia) Status: Acute Plan: Symptoms stable, normal urination - Continue home tamsulosin (6) FEN/PPX Status: Acute Plan: Fluids: None Elecs: Monitor and replete as needed Nutrition: Diet heart healthy with 1.5 L fluid restriction, 2 gm sodium restriction DVT: On coumadin sdw Dr. Talamantes (Kris Perez MD R1) Problem Qualifiers (1) CHF (congestive heart failure): Qualified Code: I50.9 - Congestive heart failure, unspecified congestive heart failure chronicity, unspecified congestive heart failure type (2) Atrial fibrillation: Qualified Code: I48.2 - Chronic atrial fibrillation (3) CAD (coronary artery disease): Qualified Code: I25.10 - Coronary artery disease involving [place] coronary artery of [place] heart without angina pectoris (4) BPH (benign prostatic hyperplasia): Qualified Code: N40.0 - Benign prostatic hyperplasia, presence of lower urinary tract symptoms unspecified, unspecified morphology Kris Perez MD R1 Mar 06, 2017 15:04 Michelle Talamantes MD Mar 07, 2017 12:24
[2017-03-06] MEDS ORDERED: AMLO2.5T PO (15:05)
[2017-03-06] MEDS: ALPRAZolam 0.5 MG TAB PO PRN ×2 (16:50→23:57)
--- NOTE | 2017-03-06 18:06 | MB ---
cc: JESSE SILVERMAN VINCENT G. DO (Fax to above) DATE OF CONSULTATION 03/06/[address] Jesse Silverman PRIMARY MANAGER APPOINTMENT Dr. Rojelio Vergara REASON FOR CONSULTATION Congestive heart failure, pleural effusions. HISTORY OF PRESENT ILLNESS Geo Givens is a pleasant 87-year-old male that I saw in the office for the first time around a month ago. At the time of seeing him, I was concerned for significant congestive heart failure with an acute and chronic presentation. At the time, I had ordered an echo and asked that if he was not feeling better after increasing his Lasix that he come to the emergency room. He did end up doing well over the past few weeks, although he still was significantly short of breath and having edema in his lower extremities. He called the office yesterday and they instructed him to come to the emergency room. While waiting her for a number of hours, he decided he would leave against medical advice. He called the office again and they instructed him once again to come to the emergency room. On arrival, he was found to be significantly short of breath with orthopnea and lower extremity edema. Since arrival, he has been given Lasix and has put out a significant amount of fluid. During the events, he states that he is, in general, not had any chest pain. His biggest thing is that he has been short of breath with orthopnea and lower extremity edema as well as fatigue and decreased appetite. PAST MEDICAL HISTORY 1. Hypertension 2. Atrial fibrillation 3. Coronary artery disease. 4. Moderate aortic stenosis by echocardiogram. 5. Gastric/duodenal cancer. PAST SURGICAL HISTORY 1. Cardiac bypass (2004) with unknown coronary anatomy. 2. Resection of gastric/duodenal cancer (2004) ALLERGIES NO KNOWN DRUG ALLERGIES. MEDICATIONS 1. Flomax 0.40 mg every night 2. Coumadin 5 mg daily 3. Metoprolol tartrate 25 mg b.i.d. 4. Digoxin 0.125 mg daily 5. Flonase 50 mcg each nare b.i.d. 6. Norvasc 7.5 mg daily 7. Lovastatin 40 mg daily 8. Lasix 20 mg b.i.d. 9. Potassium chloride 10 mEq daily. 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 He rarely uses alcohol. He is a 70 year smoking history and currently smokes cigars. FAMILY HISTORY Positive for coronary artery disease. Denies premature coronary artery disease or sudden cardiac within the family. REVIEW OF SYSTEMS 14-systems were reviewed including osteopathic. Pertinent positives and negatives above otherwise negative. PHYSICAL EXAMINATION VITAL SIGNS: Temperature 98.1, heart rate 72, blood pressure 121/66, respirations 18, pulse ox 97% on room air. GENERAL: The patient appears well in no acute distress, alert awake and oriented x3. HEENT: Extraocular muscles intact. Mucous membranes moist. NECK: Supple with mild JVD at 45 degrees. Carotid upstroke is brisk in nature. HEART: Irregularly irregular. Positive first and second heart sounds with a 2-3/6 crescendo-decrescendo murmur which is mid peaking to the right sternal border. LUNGS: Decreased breath sounds bilaterally with minimal rales noted at the bases. ABDOMEN: Soft, nontender, nondistended, no organomegaly noted. EXTREMITIES: Show 2+ pitting edema bilaterally. Femoral and distal pulses intact bilaterally. NEUROLOGIC: No focal deficits. SKIN: Warm, dry and intact. OSTEOPATHIC: No kyphoscoliosis, lordosis or paraspinal tender points. Noted. LABORATORY FINDINGS Hemoglobin 10.6, hematocrit 31.5, platelets 167. INR 2.0. Potassium 4.2, BUN 14, creatinine 0.99, troponin negative x1, BNP 180. IMAGING STUDIES CT angiography of the chest (March 06, 2017) bilateral pleural effusion with a moderate on the right and small on the left, mild interstitial prominence. Electrocardiogram (March 06, 2017 at 0957) atrial fibrillation with a controlled ventricular rate, no acute ST or T wave changes. Echocardiogram (February 03, 2017, from the office) normal ejection fraction of 55-60%, mild LVH, moderate aortic stenosis (mean gradient 27, aortic valve area 0.9), possible mild mitral stenosis, moderate mitral regurgitation, moderate tricuspid regurgitation. IMPRESSION 1. Acute on chronic heart failure with a preserved ejection fraction. 2. Moderate aortic stenosis (mean gradient 27, aortic valve area 0.9) by echocardiogram (February 03, 2017) 3. Bilateral pleural effusions 4. Hyponatremia most likely from fluid overload state. 5. Coumadin coagulopathy. 6. Chronic atrial fibrillation on anticoagulation with Coumadin. 7. History of coronary artery disease with coronary artery bypass grafting of unknown anatomy. 8. Hyperlipidemia 9. Hypertensive heart disease with an elevated blood pressure of 168/75 on arrival. RECOMMENDATIONS 1. Since first meeting Geo about a month ago I felt that he has been in a congestive heart failure state and I have been trying to increase his Lasix to try to get fluid off, but I have been unsuccessful. While here in the hospital, we will plan on using IV Lasix to diurese him. He has gotten his first dose in the emergency room and has diuresed well with that. 2. We will try to further control his blood pressure while here, as this may be a significant part of his congestive heart failure state. 3. On an echocardiogram done in my office it appears that he has probable moderate aortic stenosis and this may also be part of his congestive heart failure state. 4. We will continue to trend his troponins x3 to rule out an ischemic cause. 5. Depending on the troponins and how the patient responds to diuresis, I will discuss further with him a consideration of conservative medical management versus possible ischemic evaluation (inpatient or outpatient) to further evaluate his coronary artery disease as well as his aortic valve more in depth. 6. At this time, we will continue him on his Coumadin therapy for his atrial fibrillation. Further recommendations will be made based on the hospital course. Thank you for allowing me to see Geo Givens. If there are any questions, please do not hesitate to call. Rojelio Vergara DO VGP/SA /3:16 PM /5:33 PM
[2017-03-06] MEDS: FUROSEMIDE 40 MG/4 ML VIAL IVP SCH (18:22)
--- NOTE | 2017-03-06 18:37 | EKG ---
Date Performed: 03/06/2017 Time Performed: 09:57:22 PTAGE: 87 years EKG: ATRIAL FIBRILLATION Poor R wave progression Cannot exclude old anteroseptal infarct, but no change from the prior tracing ABNORMAL RHYTHM ECG PREVIOUS TRACING : 12/28/2016 05.03 DOCTOR: Danyel Chang Interpretating Date/Time 03/06/2017 18:36:19
[2017-03-06] MEDS: METOPROLOL TARTRATE 25 MG TAB PO SCH (20:28)
[2017-03-06] MEDS: POTASSIUM CHLORIDE 10 MEQ CONTROLLED RELEASE TAB PO SCH (20:28)
[2017-03-06] MEDS: SODIUM CHLORIDE 0.9% FLUSH 10 ML FLUSH IV FLUSH SCH (20:29)
[2017-03-06] MEDS ORDERED: TAMSULOSIN HCL 0.4 MG CAP PO SCH (21:00)
[2017-03-06] MEDS ORDERED: MIRTAZAPINE 15 MG TAB PO SCH (21:00)
[2017-03-07 00:39] LABS: ANION GAP 9 MEQ/L (5-15); BICARBONATE 26.2 MEQ/L (21.0-32.0); BLOOD UREA NITROGEN 15 MG/DL (7-18); CHLORIDE 102 MEQ/L (98-107); GLOMERULAR FILTRATION RATE 60 ML/MIN (>89); POTASSIUM 3.5 MEQ/L (3.5-5.1); SODIUM (NA) 137 MEQ/L (136-145)
[2017-03-07 00:41] LABS: CREATINE KINASE 133 U/L (39-308)
[2017-03-07 00:54] LABS: CKMB 2.1 NG/ML (0.5-3.6)
[2017-03-07 01:00] VITALS: PULSE 61
[2017-03-07 04:48] VITALS: BP 140/60; PULSE 72; RESP 19; TEMP 98; O2SAT 95
[2017-03-07 07:15] VITALS: PULSE 65
[2017-03-07 07:47] VITALS: BP 129/62; PULSE 71; RESP 16; TEMP 97.9; O2SAT 97
[2017-03-07] MEDS: SODIUM CHLORIDE 0.9% FLUSH 10 ML FLUSH IV FLUSH SCH (08:06)
[2017-03-07] MEDS: POTASSIUM CHLORIDE 10 MEQ CONTROLLED RELEASE TAB PO SCH (08:06)
[2017-03-07] MEDS: FUROSEMIDE 40 MG/4 ML VIAL IVP SCH (08:06)
[2017-03-07] MEDS: METOPROLOL TARTRATE 25 MG TAB PO SCH (08:07)
[2017-03-07 08:17] LABS: HEMATOCRIT 30.9 % (39.0-51.0); REVIEW FLAG FINAL
[2017-03-07 08:24] LABS: INTERNATIONAL NORMALIZED RATIO 2.2 RATIO; PROTHROMBIN TIME - PATIENT 25.4 SEC (9.8-11.6)
[2017-03-07] MEDS ORDERED: DIGOXIN 0.125 MG TAB PO SCH (09:00)
[2017-03-07] MEDS ORDERED: amLODIPine BESYLATE 5 MG TAB PO SCH (09:00)
[2017-03-07] MEDS ORDERED: LISINOPRIL 5 MG TAB PO SCH ×2 (09:00)
[2017-03-07] MEDS ORDERED: PRAVASTATIN SOD 40 MG TAB PO SCH (09:00)
[2017-03-07] MEDS ORDERED: CYANOCOBALAMIN 1,000 MCG TAB PO SCH (09:00)
[2017-03-07] MEDS ORDERED: LISI-519 PO (10:34)
--- NOTE | 2017-03-07 10:34 | HHI.DCPOC ---
Discharge Care Plan Diagnosis: (1) CHF (congestive heart failure) (2) CAD (coronary artery disease) (3) Atrial fibrillation Goals to Promote Your Health * To prevent worsening of your condition and complications * To maintain your health at the optimal level Directions to Meet Your Goals Take your medications as prescribed Follow your dietary instruction Follow activity as directed Keep your appointments as scheduled Take your immunizations and boosters as scheduled If your symptoms worsen call your PCP, if no PCP go to Urgent Care Center or Emergency Room Smoking is Dangerous to Your Health. Avoid second hand smoke Call the 24-hour hour crisis hotline for domestic abuse at Kris Perez MD R1 Mar 07, 2017 10:34
[2017-03-07] MEDS ORDERED: MIRTA15 PO (10:35)
--- NOTE | 2017-03-07 11:57 | PD.CARD.PN ---
Subjective Subjective Remarks No chest pain, no shortness of breath Doing well Objective Medications Current Medications Medications (Trade) Dose Ordered Sig/Harshad Route Start Time Stop Time Status Last Admin (NS Flush) 2 ml UNSCH PRN IV FLUSH 03/06/17 14:15 (NS Flush) 2 ml BID IV FLUSH 03/06/17 21:00 03/07/17 08:06 (Lasix Inj) 40 mg BID@09,18 IVP 03/06/17 18:00 03/07/17 08:06 (KCl) 10 meq BID PO 03/06/17 21:00 03/07/17 08:06 (Lanoxin) 0.125 mg DAILY PO 03/07/17 09:00 03/07/17 08:07 (Pravachol) 40 mg DAILY PO 03/07/17 09:00 03/07/17 08:07 (Lopressor) 25 mg BID PO 03/06/17 21:00 03/07/17 08:07 (Flomax) 0.4 mg HS PO 03/06/17 21:00 03/06/17 20:28 (Coumadin) 5 mg DAILY@1600 PO 03/07/17 16:00 (Vitamin B12) 1,000 mcg DAILY PO 03/07/17 09:00 03/07/17 08:07 (Pill Splitter) 1 ea UNSCH PRN OTHER 03/06/17 14:30 Miscellaneous Information ALL NURSING DEPARTME... UNSCH PRN OTHER 03/06/17 14:45 03/07/17 14:44 (Prinivil) 5 mg DAILY PO 03/07/17 09:00 03/07/17 08:07 (Xanax) 0.5 mg Q6H PRN PO 03/06/17 16:45 03/06/17 23:57 (Remeron) 15 mg HS PO 03/06/17 21:00 03/06/17 20:28 Vital Signs / I&O Vital Signs Date Time Temp Pulse Resp B/P Pulse Ox O2 Delivery O2 Flow Rate FiO2 03/07/17 07:47 97.9 71 16 129/62 97 03/07/17 07:15 65 03/07/17 04:48 98.0 72 19 140/60 95 03/07/17 01:00 61 03/06/17 23:45 97.8 78 18 145/62 96 03/06/17 20:00 61 03/06/17 18:08 97.6 83 16 146/70 96 03/06/17 15:30 77 20 128/ 96 03/06/17 14:21 97 21 03/06/17 13:25 72 18 121/66 97 Physical Exam GENERAL: NAD, AAOx3 SKIN: Warm and dry. HEAD: Atraumatic. Normocephalic. EYES: Pupils equal and round. No scleral icterus. No injection or drainage. ENT: No nasal bleeding or discharge. Mucous membranes pink and moist. NECK: Trachea midline. No JVD. CARDIOVASCULAR: Irregularly irregular RESPIRATORY: No accessory muscle use. Clear to auscultation. Breath sounds equal bilaterally. GASTROINTESTINAL: Abdomen soft, non-tender, nondistended. Hepatic and splenic margins not palpable. MUSCULOSKELETAL: Trace edema bilaterally NEUROLOGICAL: Awake and alert. No obvious cranial nerve deficits. Motor grossly within normal limits. Five out of 5 muscle strength in the arms and legs. Normal speech. PSYCHIATRIC: Appropriate mood and affect; insight and judgment normal. Laboratory Laboratory Tests Test 03/06/17 03/06/17 03/07/17 17:45 23:54 07:11 Total Creatine Kinase 94 U/L 133 U/L Troponin I 0.02 NG/ML 0.02 NG/ML Sodium Level 137 MEQ/L Potassium Level 3.5 MEQ/L Chloride Level 102 MEQ/L Carbon Dioxide Level 26.2 MEQ/L Anion Gap 9 MEQ/L Blood Urea Nitrogen 15 MG/DL Creatinine 1.14 MG/DL Estimat Glomerular Filtration 60 ML/MIN Rate Random Glucose 105 MG/DL Calcium Level 8.9 MG/DL Creatine Kinase MB 2.1 NG/ML Hemoglobin 10.3 GM/DL Hematocrit 30.9 % Prothrombin Time 25.4 SEC Prothromb Time International 2.2 RATIO Ratio B-Type Natriuretic Peptide 102 PG/ML Assessment and Plan Problem List: (1) CHF (congestive heart failure) (2) Pleural effusion (3) Shortness of breath (4) Atrial fibrillation (5) CAD (coronary artery disease) (6) Essential hypertension Assessment and Plan 1) Chronic CHF since meeting him 1 month ago, was only taking Lasix PRN, will plan on changing to Lasix PO daily 20mg 2) Cardiovascularly stable for discharge 3) Will watch weights at home, if up 2 lbs in 24 hour or 3 lbs in 48 hours will take an extra Lasix If having to take a lot of extra Lasix, will consider increasing the dose 4) Consider stress testing due to CHF in the outpatient setting 5) Moderate aortic stenosis by echo in the office 6) Has office visit in April scheduled, if needed before that will call Problem Qualifiers (1) CAD (coronary artery disease): Qualified Code: I25.10 - Coronary artery disease involving [place] coronary artery of [place] heart without angina pectoris Rojelio Vergara DO Mar 07, 2017 11:57
[2017-03-07 12:16] VITALS: BP 92/52; PULSE 70; RESP 16; TEMP 97.4; O2SAT 97
--- NOTE | 2017-03-07 12:24 | HHI.HP ---
[facility] Service Family Medicine Primary Care Physician Jesse Duncan MD Admission Diagnosis new onset chf, pleural effusions Diagnoses: (1) CHF (congestive heart failure) Diagnosis: Principal (2) Atrial fibrillation Diagnosis: Principal (3) Essential hypertension Diagnosis: Principal (4) CAD (coronary artery disease) Diagnosis: Principal (5) BPH (benign prostatic hyperplasia) Diagnosis: Principal (6) FEN/PPX Diagnosis: Principal International Travel<30 Days: No Contact w/Intl Traveler<30days: No Known Affected Area: No History of Present Illness Mr Givens is an 87-year-old male with past medical history of A. fib on Coumadin , coronary artery disease status post CABG, hypertension presenting with a several month history of shortness of breath associated with orthopnea, lower extremity edema. He presents to the ED due to worsening shortness of breath from baseline as well as associated anxiety symptoms due to not being able to catch his breath over the last several days. He also notes lightheadedness over the last several months as well. He has not had any chest pain. He also notes fatigue and decreased appetite, which has worsened over the last several days as well. He was given diuretics in the ED and during admission and responded very well. He feels greatly improved and is eager to go home today. He has a walker at home and saw PT and he and his are comfortable with him going home. He received teaching about CHF and checking daily weights and fluid status.He knows about the signs and symptoms of worsening CHF and will get good follow up as an outpt. Review of Systems Other Constitutional: COMPLAINS OF: Fatigue, Change in appetite, DENIES: Fever, Chills Eyes: DENIES: Diplopia Ears, nose, mouth, throat: COMPLAINS OF: Hearing loss, DENIES: Tinnitus, Vertigo Respiratory: COMPLAINS OF: Shortness of breath, DENIES: Cough, Wheezing Cardiovascular: COMPLAINS OF: Dyspnea on Exertion, Lower Extremity Edema, Orthopnea, DENIES: Chest pain, Palpitations Gastrointestinal: DENIES: Abdominal pain, Diarrhea, Nausea, Vomiting Genitourinary: DENIES: Dysuria Musculoskeletal: DENIES: Muscle aches Integumentary: DENIES: Rash Immunologic/allergic: DENIES: Eczema Neurologic: DENIES: Headache, Localized weakness, Speech Problems Psychiatric: COMPLAINS OF: Anxiety, Depression, DENIES: Suicidal Ideation Past Family Social History Past Medical History PMH HTN Atrial fibrillation CAD Gastric/Duodenal cancer Past Surgical History Cardiac bypass 2004 Resection of gastric/duodenal cancer 2004 Allergies: Coded Allergies: No Known Allergies (Verified , 03/05/17) Family History CAD Unspecified cancer Social History 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 Rare alcohol consumption. 70 yr smoking history; currently smokes cigars. 10 hrs/week exercise Physical Exam Vital Signs Vital Signs Date Time Temp Pulse Resp B/P Pulse Ox O2 Delivery O2 Flow Rate FiO2 03/07/17 07:47 97.9 71 16 129/62 97 03/07/17 07:15 65 03/07/17 04:48 98.0 72 19 140/60 95 03/07/17 01:00 61 03/06/17 23:45 97.8 78 18 145/62 96 03/06/17 20:00 61 03/06/17 18:08 97.6 83 16 146/70 96 03/06/17 15:30 77 20 128/ 96 03/06/17 14:21 97 21 03/06/17 13:25 72 18 121/66 97 Physical Exam GENERAL: WDWN elderly white male sitting up in chair in NAD. Standing up and dressed and walking in the room SKIN: No rashes, ecchymoses or lesions. Cool and dry. HEAD: NC/AT EYES: PERRL. EOMI. No conjunctival injection or drainage. ENT: MMM, OP without erythema, tonsillar swelling, or exudate. Graying TMs bilaterally, no erythema or bulging. NECK: Supple, no lymphadenopathy. JVD with hepatojugular reflex. CARDIOVASCULAR: Normal rate, irregularly irregular rhythm. Normal S1/S2. II-III/ systolic murmur heard at RUSB and LUSB, loudest LUSB. RESPIRATORY: CTAB. No crackles or wheezes. GASTROINTESTINAL: Abdomen soft, non-distended, non-tender. No hepato- splenomegaly or palpable masses. MUSCULOSKELETAL: Extremities without clubbing, cyanosis, only trace edema. NEUROLOGICAL: Awake and alert. Cranial nerves II through XII grossly intact. Moves all extremities without difficulty. Normal speech. Laboratory Laboratory Tests Test 03/06/17 03/06/17 03/07/17 17:45 23:54 07:11 Total Creatine Kinase 94 133 Troponin I 0.02 0.02 Sodium Level 137 Potassium Level 3.5 Chloride Level 102 Carbon Dioxide Level 26.2 Anion Gap 9 Blood Urea Nitrogen 15 Creatinine 1.14 Estimat Glomerular Filtration 60 Rate Random Glucose 105 Calcium Level 8.9 Creatine Kinase MB 2.1 Hemoglobin 10.3 Hematocrit 30.9 Prothrombin Time 25.4 Prothromb Time International 2.2 Ratio B-Type Natriuretic Peptide 102 Result Diagram: 03/07/17 0711 03/06/17 2354 Imaging Last Impressions Chest X-Ray 03/06/17 1014 Signed Impressions: Service Date/Time: Monday, March 06, 2017 10:23 - CONCLUSION: Question of mild pulmonary venous congestion. Radha Olvera MD CT Angiography 03/06/17 0000 Signed Impressions: Service Date/Time: Monday, March 06, 2017 12:39 - CONCLUSION: 1. Bilateral pleural effusions, moderate on the right and small on the left 2. Mild interstitial prominence suggesting some degree of vascular congestion or volume overload. 3. In addition, heart size is prominent with enlargement of the left atrium, mitral valve annulus calcification and calcification of the aortic valve leaflets. Spectrum of findings suggests some degree of CHF. 4. No pulmonary embolus. Kurt Noriega MD Assessment and Plan Assessment and Plan 87 yo man with history of coronary artery disease, atrial fibrillation on Coumadin, hypertension presenting with problems listed below He and his are eager to go home today and will have close follow up Problem List: (1) CHF (congestive heart failure) Status: Acute Plan: Given h/o CAD, orthopnea, lower extremity edema, and response to Lasix, likely Dx is CHF. Echo done in office by Cancer Genetics Assistant Dr. Vergara showing normal EF with aortic stenosis; report to follow Troponin I < 0.02 EKG showing rate-controlled AFib, no ST-T changes - Continue home metoprolol - Lasix 40 mg IV BID initially, now changed to po to go home with. Pt and will adjust diuretics based on weights and symptoms - Potassium 10 mg PO BID - Lisinopril 5 mg daily starting tomorrow - Hold amlodipine (switching to lisinopril) - Consulted cardiology, appreciate Dr Vergara's help, he will follow pt as an outpt - Cardiac rehab consult - Daily weights, I&O - Diet heart healthy with 1.5 L fluid restriction, 2 gm sodium restriction - Trended troponin, EKG. no stress test needed now - Telemetry (2) Atrial fibrillation Status: Chronic Plan: Currently rate-controlled - Continue home metoprolol, digoxin - Continue coumadin - Checked INR in AM (3) Essential hypertension Status: Acute Plan: BP initially high on arrival to ER (170s), hadn't taken home medications. Decreased to 120s. - Continue metoprolol - Starting lisinopril in AM as above - Discontinue amlodipine (switching to lisinopril) - If other agent needed, consider Aldactone (if recommended by cardiology) (4) CAD (coronary artery disease) Status: Acute Plan: Stable - Continue home statin, aspirin (5) BPH (benign prostatic hyperplasia) Status: Acute Plan: Symptoms stable, normal urination - Continue home tamsulosin (6) FEN/PPX Status: Acute Plan: Fluids: None Elecs: Monitor and replete as needed Nutrition: Diet heart healthy with 1.5 L fluid restriction, 2 gm sodium restriction DVT: On coumadin Problem Qualifiers (1) CHF (congestive heart failure): Qualified Code: I50.9 - Congestive heart failure, unspecified congestive heart failure chronicity, unspecified congestive heart failure type (2) Atrial fibrillation: Qualified Code: I48.2 - Chronic atrial fibrillation (3) CAD (coronary artery disease): Qualified Code: I25.10 - Coronary artery disease involving [place] coronary artery of [place] heart without angina pectoris (4) BPH (benign prostatic hyperplasia): Qualified Code: N40.0 - Benign prostatic hyperplasia, presence of lower urinary tract symptoms unspecified, unspecified morphology Michelle Talamantes MD Mar 07, 2017 12:24
--- NOTE | 2017-03-07 13:19 | EKG ---
Date Performed: 03/06/2017 Time Performed: 17:51:07 PTAGE: 87 years EKG: ATRIAL FIBRILLATION NONSPECIFIC T-WAVE ABNORMALITY Cannot exclude old anteroseptal infarct Compared to prior tracing no significant change ABNORMAL RHYTHM ECG PREVIOUS TRACING : 03/06/2017 09.57 DOCTOR: Obey Alford Interpretating Date/Time 03/07/2017 13:17:00
--- NOTE | 2017-03-07 13:31 | EKG ---
Date Performed: 03/06/2017 Time Performed: 22:09:12 PTAGE: 87 years EKG: ATRIAL FIBRILLATION SEPTAL MYOCARDIAL INFARCTION ACUTE SC Compared to prior tracing n o significant change PREVIOUS TRACING : 03/06/2017 17.51 DOCTOR: Obey Alford Interpretating Date/Time 03/07/2017 13:30:08
[2017-03-07] MEDS ORDERED: WARFARIN SOD 5 MG TAB PO SCH (16:00)
[2017-03-12] MEDS ORDERED: MIRTA15 PO (12:00)
[2017-03-12] MEDS ORDERED: LISI-519 PO (12:00)
[2017-03-24] MEDS ORDERED: LISI-519 PO (06:49)
== END 2017-03-07 14:58 | disposition home or self-care (01) ==
LOC: NEPC 09:40 → NEDA 13:28 → UNDOADMOB 13:28 → NEDA 18:44 → NEPHCDU 18:44 → UNDODISOB 03-07 14:58
PROVIDERS: ADMIT Family Medicine; ATTEND Family Medicine
DX: I50.9 Heart failure, unspecified (principal); I48.2 Chronic atrial fibrillation; I11.0 Hypertensive heart disease with heart failure; I25.10 Atherosclerotic heart disease of native coronary artery without angina pectoris; I35.0 Nonrheumatic aortic (valve) stenosis; N40.0 Benign prostatic hyperplasia without lower urinary tract symptoms; R79.1 Abnormal coagulation profile; E78.5 Hyperlipidemia, unspecified; E78.00 Pure hypercholesterolemia, unspecified; F17.290 Nicotine dependence, other tobacco product, uncomplicated; Z79.01 Long term (current) use of anticoagulants; Z85.038 Personal history of other malignant neoplasm of large intestine; Z95.1 Presence of aortocoronary bypass graft
CPT/HCPCS: 71010; 71275; 80048; 80053; 82550; 82552; 83735; 83880; 84484; 85014; 85018; 85025; 85610; 85730; 93005; 96374; 97162; 99285; G0378; G8987; G8988; J1940; Q9967